=== PATIENT | female | born 1940 ===

== ENCOUNTER 2022-08-03 14:13 | Inpatient (IN) ==
[2022-08-03] MEDS ORDERED: Furosemide 40 mg/4 ml IV VIAL IV ONE ×2 (14:14→20:18)
[2022-08-03 14:54] LABS: INR 3.03 (0.89-1.11)
[2022-08-03 14:59] LABS: Hematocrit 24 % (35-47); Mean Corpuscular HGB Conc 30 g/dL (31-36); Mean Corpuscular Hemoglobin 21 pg (27-31); Mean Corpuscular Volume 69 fL (80-97); Mean Platelet Volume 8.2 fL (7.4-10.4); Platelet Count 466 10^3/uL (150-450); Red Blood Count 3.43 10^6 /uL (3.70-4.87); Red Cell Distribution Width 21 % (10-15)
[2022-08-03 15:10] LABS: High Sens Troponin Baseline 6 pg/mL (<15)
[2022-08-03 15:20] LABS: Microcytosis 3+
[2022-08-03 15:21] LABS: Anisocytosis 2+
[2022-08-03 15:22] LABS: Schistocytes 2+
[2022-08-03 15:23] LABS: ABS Basophils 0.1 10^3/ul (0-0.2); ABS Eosinophils 0.2 10^3/ul (0-0.6); ABS Monocytes 1.1 10^3/ul (0-0.8); ABS Neutrophils 4.5 10^3/ul (1.5-7.7); Eosinophil % 2.4 %; Lymphocyte % 24.7 %
[2022-08-03 15:44] LABS: ALT 10 U/L (7-52); AST 15 U/L (13-39); Albumin 3.7 g/dL (3.2-5.2); Albumin/Globulin Ratio 1.5 (1-3); Alkaline Phosphatase 182 U/L (35-149); Anion Gap 6 mmol/L (2-11); Blood Urea Nitrogen 16 mg/dL (6-24); CO2 Carbon Dioxide 27 mmol/L (22-32); Calcium 8.3 mg/dL (8.6-10.3); Chloride 92 mmol/L (101-111); Globulin 2.5 g/dL (2-4); Glucose 103 mg/dL (70-100); Magnesium 1.9 mg/dL (1.9-2.7); Potassium 3.6 mmol/L (3.5-5.0); Sodium 125 mmol/L (135-145); Total Protein 6.2 g/dL (6.4-8.9); eGFR CKD-EPI 88.9 (>60)
[2022-08-03 16:22] LABS: High Sensitivity Troponin 1 Hr 6 pg/mL (<15)
[2022-08-03] MEDS ORDERED: Pantoprazole VIAL 40 MG VIAL IV ONE (17:11)
[2022-08-03 20:51] LABS: Total Iron Binding Capacity 538 mcg/dL (250-450); Transferrin 384 mg/dL (203-362)
[2022-08-03 20:58] LABS: Urine Appearance Clear; Urine Bilirubin Negative (Negative); Urine Blood Negative (Negative); Urine Color Straw; Urine Glucose Negative (Negative); Urine Ketones Negative (Negative); Urine Nitrite Negative (Negative); Urine Protein Negative (Negative); Urine Specific Gravity 1.003 (1.002-1.030); Urine Urobilinogen Negative (Negative)
[2022-08-03 21:04] LABS: % Iron Saturation 4 % (15-55); Iron < 20 ug/dL (50-212); Unsaturated Iron Binding 518 ug/dL
[2022-08-03 21:11] LABS: Ferritin 19.5 ng/mL (11-307)
[2022-08-03 21:31] LABS: Urine Osmo 271 mOsm/kg (150-1150)
[2022-08-04] MEDS: Albuterol HFA INHALER 8 gm MDI INH PRN ×2 (02:28→19:33)
[2022-08-04 07:11] LABS: ABS Basophils 0.1 10^3/ul (0-0.2); ABS Eosinophils 0.2 10^3/ul (0-0.6); ABS Lymphocytes 1.2 10^3/ul (1.0-4.8); ABS Neutrophils 4.5 10^3/ul (1.5-7.7); Eosinophil % 2.6 %; Hematocrit 22 % (35-47); Hemoglobin 7.1 g/dL (12.0-16.0); Mean Corpuscular HGB Conc 32 g/dL (31-36); Mean Corpuscular Hemoglobin 22 pg (27-31); Mean Corpuscular Volume 70 fL (80-97); Nucleated Red Blood Cells % 0.3; Platelet Count 332 10^3/uL (150-450); Red Blood Count 3.19 10^6 /uL (3.70-4.87); Red Cell Distribution Width 23 % (10-15)
[2022-08-04 07:31] LABS: Calcium 7.7 mg/dL (8.6-10.3); Magnesium 1.7 mg/dL (1.9-2.7); Potassium 3.2 mmol/L (3.5-5.0); eGFR CKD-EPI 90.7 (>60)
[2022-08-04 07:42] LABS: Osmolality Serum 256 mOsm/kg (275-295)
[2022-08-04 07:43] LABS: TSH Ultra Thyroid Stim Horm 2.48 mcIU/mL (0.34-5.60)
[2022-08-04] MEDS: Pantoprazole VIAL 40 MG VIAL IV SCH (09:08)
[2022-08-04 12:08] LABS: Hematocrit 24 % (35-47); Hemoglobin 7.3 g/dL (12.0-16.0)
[2022-08-04] MEDS: Potassium Chlor 10 meq TAB PO SCH ×2 (12:30→20:13)
[2022-08-04] MEDS: Mometasone 220 MCG MDI INH SCH (19:43)
[2022-08-04 21:16] LABS: Potassium 3.5 mmol/L (3.5-5.0); eGFR CKD-EPI 86.9 (>60)
[2022-08-05 07:12] LABS: ABS Basophils 0.1 10^3/ul (0-0.2); ABS Eosinophils 0.2 10^3/ul (0-0.6); ABS Lymphocytes 1.5 10^3/ul (1.0-4.8); ABS Neutrophils 3.7 10^3/ul (1.5-7.7); Eosinophil % 3.6 %; Hematocrit 23 % (35-47); Hemoglobin 7.1 g/dL (12.0-16.0); Lymphocyte % 23.3 %; Mean Corpuscular HGB Conc 31 g/dL (31-36); Mean Corpuscular Hemoglobin 22 pg (27-31); Mean Corpuscular Volume 70 fL (80-97); Nucleated Red Blood Cells % 0.2; Platelet Count 342 10^3/uL (150-450); Red Blood Count 3.26 10^6 /uL (3.70-4.87); Red Cell Distribution Width 23 % (10-15); White Blood Count 6.5 10^3/uL (3.5-10.8)
[2022-08-05 07:42] LABS: Anion Gap 7 mmol/L (2-11); Blood Urea Nitrogen 15 mg/dL (6-24); CO2 Carbon Dioxide 28 mmol/L (22-32); Chloride 89 mmol/L (101-111); Glucose 99 mg/dL (70-100); Magnesium 1.9 mg/dL (1.9-2.7); Potassium 3.7 mmol/L (3.5-5.0); Sodium 124 mmol/L (135-145); eGFR CKD-EPI 86.6 (>60)
[2022-08-05] MEDS: Potassium Chlor 10 meq TAB PO SCH ×2 (08:23→20:01)
[2022-08-05 08:24] LABS: Total Iron Binding Capacity 472 mcg/dL (250-450); Transferrin 337 mg/dL (203-362)
[2022-08-05] MEDS: Pantoprazole VIAL 40 MG VIAL IV SCH (08:24)
[2022-08-05 08:27] LABS: % Iron Saturation 4 % (15-55); Iron < 20 ug/dL (50-212); Unsaturated Iron Binding 452 ug/dL
[2022-08-05 08:44] LABS: Ferritin 18.6 ng/mL (11-307)
[2022-08-05] MEDS ORDERED: Ferric Gluconate IV 125 MG in NS 0.9% 100 ml BAG 100 ML IVPB ONE (13:53)
[2022-08-05] MEDS: Mometasone 220 MCG MDI INH SCH (17:55)
[2022-08-05] MEDS: Albuterol HFA INHALER 8 gm MDI INH PRN (18:01)
[2022-08-06] MEDS: Pantoprazole VIAL 40 MG VIAL IV SCH (09:10)
[2022-08-06] MEDS: Potassium Chlor 10 meq TAB PO SCH ×2 (09:10→23:25)
[2022-08-06] MEDS: Albuterol HFA INHALER 8 gm MDI INH PRN ×2 (14:32→23:16)
[2022-08-07 06:25] LABS: ABS Basophils 0.1 10^3/ul (0-0.2); ABS Eosinophils 0.2 10^3/ul (0-0.6); ABS Lymphocytes 1.3 10^3/ul (1.0-4.8); ABS Monocytes 0.9 10^3/ul (0-0.8); ABS Neutrophils 4.2 10^3/ul (1.5-7.7); Eosinophil % 3.1 %; Hematocrit 22 % (35-47); Hemoglobin 6.9 g/dL (12.0-16.0); Lymphocyte % 19.1 %; Mean Corpuscular HGB Conc 31 g/dL (31-36); Mean Corpuscular Hemoglobin 22 pg (27-31); Mean Corpuscular Volume 69 fL (80-97); Mean Platelet Volume 8.1 fL (7.4-10.4); Nucleated Red Blood Cells % 0.1; Platelet Count 343 10^3/uL (150-450); Red Blood Count 3.17 10^6 /uL (3.70-4.87); Red Cell Distribution Width 23 % (10-15); White Blood Count 6.7 10^3/uL (3.5-10.8)
[2022-08-07 06:50] LABS: Calcium 8.1 mg/dL (8.6-10.3); Magnesium 2.1 mg/dL (1.9-2.7); eGFR CKD-EPI 87.9 (>60)
[2022-08-07] MEDS: Potassium Chlor 10 meq TAB PO SCH (10:42)
[2022-08-07] MEDS: Pantoprazole VIAL 40 MG VIAL IV SCH (10:43)
[2022-08-07] MEDS: Mometasone 220 MCG MDI INH SCH ×2 (13:23→19:53)
[2022-08-07] MEDS: Albuterol HFA INHALER 8 gm MDI INH PRN ×2 (13:23→19:56)
[2022-08-07] MEDS ORDERED: Furosemide 20 mg/2 ml IV VIAL IV SLOW PU ONE (16:42)
[2022-08-07 20:44] LABS: Hematocrit 27 % (35-47); Hemoglobin 8.1 g/dL (12.0-16.0)
[2022-08-08 08:25] LABS: ABS Basophils 0.1 10^3/ul (0-0.2); ABS Eosinophils 0.2 10^3/ul (0-0.6); ABS Monocytes 1.2 10^3/ul (0-0.8); ABS Neutrophils 4.7 10^3/ul (1.5-7.7); Eosinophil % 2.1 %; Hematocrit 27 % (35-47); Hemoglobin 8.5 g/dL (12.0-16.0); Lymphocyte % 24.8 %; Mean Corpuscular HGB Conc 31 g/dL (31-36); Mean Corpuscular Hemoglobin 23 pg (27-31); Mean Corpuscular Volume 72 fL (80-97); Mean Platelet Volume 8.4 fL (7.4-10.4); Nucleated Red Blood Cells % 0.1; Platelet Count 387 10^3/uL (150-450); Red Blood Count 3.77 10^6 /uL (3.70-4.87); Red Cell Distribution Width 25 % (10-15); White Blood Count 8.2 10^3/uL (3.5-10.8)
[2022-08-08 08:44] LABS: Albumin 3.5 g/dL (3.2-5.2); Albumin/Globulin Ratio 1.5 (1-3); Calcium 8.3 mg/dL (8.6-10.3); Globulin 2.3 g/dL (2-4); Magnesium 2.2 mg/dL (1.9-2.7); Potassium 4.9 mmol/L (3.5-5.0); Total Bilirubin 0.8 mg/dL (0.2-1.0); Total Protein 5.8 g/dL (6.4-8.9); eGFR CKD-EPI 86.6 (>60)
[2022-08-08] MEDS: Pantoprazole VIAL 40 MG VIAL IV SCH (09:57)
[2022-08-08] MEDS: Albuterol HFA INHALER 8 gm MDI INH PRN (10:19)
[2022-08-08] MEDS ORDERED: CALCIUM GLUCONATE 1GM/50ML NS 1 GM/50 ML BAG IV ONE (11:29)
[2022-08-08] MEDS ORDERED: Furosemide 40 mg/4 ml IV VIAL IV SLOW PU ONE (14:44)
[2022-08-08] MEDS: Mometasone 220 MCG MDI INH SCH (19:46)
[2022-08-09 08:20] LABS: Tissue Transglutaminase IgA Ab 1.9 U/mL; Tissue Transglutaminase IgG Ab <1.2 U/mL
[2022-08-09] MEDS: Pantoprazole VIAL 40 MG VIAL IV SCH (08:37)
[2022-08-09 08:54] LABS: ABS Basophils 0.1 10^3/ul (0-0.2); ABS Eosinophils 0.1 10^3/ul (0-0.6); ABS Monocytes 0.7 10^3/ul (0-0.8); ABS Neutrophils 3.6 10^3/ul (1.5-7.7); Eosinophil % 2.3 %; Hematocrit 26 % (35-47); Lymphocyte % 18.8 %; Mean Corpuscular HGB Conc 31 g/dL (31-36); Mean Corpuscular Hemoglobin 22 pg (27-31); Mean Corpuscular Volume 73 fL (80-97); Mean Platelet Volume 7.9 fL (7.4-10.4); Platelet Count 348 10^3/uL (150-450); Red Blood Count 3.58 10^6 /uL (3.70-4.87); Red Cell Distribution Width 26 % (10-15); White Blood Count 5.5 10^3/uL (3.5-10.8)
[2022-08-09 09:33] LABS: Calcium 8.3 mg/dL (8.6-10.3); Magnesium 2.2 mg/dL (1.9-2.7); Potassium 4.1 mmol/L (3.5-5.0); eGFR CKD-EPI 87.2 (>60)
[2022-08-09 10:04] LABS: Anisocytosis 1+; Target Cells 1+
[2022-08-09 10:06] LABS: Acanthocytes 1+
[2022-08-09] MEDS: Mometasone 220 MCG MDI INH SCH (19:21)
[2022-08-10 07:20] LABS: Calcium 8.2 mg/dL (8.6-10.3); Magnesium 2.1 mg/dL (1.9-2.7); Potassium 3.9 mmol/L (3.5-5.0); eGFR CKD-EPI 86.6 (>60)
[2022-08-10 07:51] LABS: ABS Basophils 0.1 10^3/ul (0-0.2); ABS Eosinophils 0.2 10^3/ul (0-0.6); ABS Lymphocytes 1.2 10^3/ul (1.0-4.8); ABS Monocytes 0.8 10^3/ul (0-0.8); ABS Neutrophils 3.4 10^3/ul (1.5-7.7); Eosinophil % 2.8 %; Hematocrit 26 % (35-47); Hemoglobin 8.2 g/dL (12.0-16.0); Lymphocyte % 21.8 %; Mean Corpuscular HGB Conc 32 g/dL (31-36); Mean Corpuscular Hemoglobin 23 pg (27-31); Mean Corpuscular Volume 73 fL (80-97); Mean Platelet Volume 7.9 fL (7.4-10.4); Nucleated Red Blood Cells % 0.1; Platelet Count 340 10^3/uL (150-450); Red Blood Count 3.54 10^6 /uL (3.70-4.87); Red Cell Distribution Width 26 % (10-15); White Blood Count 5.6 10^3/uL (3.5-10.8)
[2022-08-10 08:54] LABS: Gliadin IgA Deamidated <10.0 U; Gliadin IgG Deamidated <10.0 U
[2022-08-10] MEDS: Pantoprazole VIAL 40 MG VIAL IV SCH (09:57)
[2022-08-10] MEDS ORDERED: Midazolam 5 mg/5 ml VIAL 1 mg/ml 5 ml VIAL (5 mg) ONE (14:32)
[2022-08-10] MEDS ORDERED: fentaNYL 100 mcg/2 ml 50 MCG/ML VIAL ONE (14:32)
[2022-08-10] MEDS ORDERED: Furosemide 40 mg/4 ml IV VIAL IV SLOW PU SCH (15:00)
[2022-08-10] MEDS: Furosemide 40 mg/4 ml IV VIAL IV SLOW PU SCH (17:59)
[2022-08-10] MEDS: Mometasone 220 MCG MDI INH SCH (19:36)
[2022-08-10 20:29] LABS: Celiac gene pairs present? Yes
[2022-08-10 20:30] LABS: Immunoglobulin A 238 mg/dL (61 - 356)
[2022-08-11 06:46] LABS: Hematocrit 27 % (35-47); Hemoglobin 8.5 g/dL (12.0-16.0); Mean Corpuscular HGB Conc 31 g/dL (31-36); Mean Corpuscular Hemoglobin 23 pg (27-31); Mean Corpuscular Volume 74 fL (80-97); Platelet Count 316 10^3/uL (150-450); Red Blood Count 3.69 10^6 /uL (3.70-4.87); Red Cell Distribution Width 26 % (10-15); White Blood Count 6.6 10^3/uL (3.5-10.8)
[2022-08-11 07:06] LABS: Albumin 3.2 g/dL (3.2-5.2); Albumin/Globulin Ratio 1.4 (1-3); Calcium 8.2 mg/dL (8.6-10.3); Globulin 2.3 g/dL (2-4); Magnesium 2.1 mg/dL (1.9-2.7); Potassium 3.8 mmol/L (3.5-5.0); Total Bilirubin 0.6 mg/dL (0.2-1.0); Total Protein 5.5 g/dL (6.4-8.9); eGFR CKD-EPI 88.2 (>60)
[2022-08-11 08:25] LABS: Anisocytosis 2+
[2022-08-11 08:26] LABS: Acanthocytes 1+
[2022-08-11 08:28] LABS: ABS Basophils 0.1 10^3/ul (0-0.2); ABS Eosinophils 0.1 10^3/ul (0-0.6); ABS Lymphocytes 1.1 10^3/ul (1.0-4.8); ABS Monocytes 0.9 10^3/ul (0-0.8); ABS Neutrophils 4.4 10^3/ul (1.5-7.7); Eosinophil % 1.6 %; Lymphocyte % 17.2 %
[2022-08-11] MEDS: Pantoprazole VIAL 40 MG VIAL IV SCH (08:44)
[2022-08-11] MEDS: Furosemide 40 mg/4 ml IV VIAL IV SLOW PU SCH (08:45)
[2022-08-11] MEDS: Mometasone 220 MCG MDI INH SCH (20:40)
[2022-08-11] MEDS ORDERED: Potassium Chlor 20 meq TAB.ER PO ONE (21:28)
[2022-08-12 06:06] LABS: Calcium 8.1 mg/dL (8.6-10.3); Magnesium 2.1 mg/dL (1.9-2.7); Potassium 4.3 mmol/L (3.5-5.0); eGFR CKD-EPI 88.5 (>60)
[2022-08-12 06:08] LABS: Hematocrit 26 % (35-47); Hemoglobin 8.1 g/dL (12.0-16.0); Mean Corpuscular HGB Conc 31 g/dL (31-36); Mean Corpuscular Hemoglobin 23 pg (27-31); Mean Corpuscular Volume 73 fL (80-97); Mean Platelet Volume 7.8 fL (7.4-10.4); Platelet Count 266 10^3/uL (150-450); Red Blood Count 3.62 10^6 /uL (3.70-4.87); Red Cell Distribution Width 26 % (10-15); White Blood Count 4.8 10^3/uL (3.5-10.8)
[2022-08-12 07:47] LABS: ABS Eosinophils 0.1 10^3/ul (0-0.6); ABS Lymphocytes 1.2 10^3/ul (1.0-4.8); ABS Monocytes 0.7 10^3/ul (0-0.8); ABS Neutrophils 2.7 10^3/ul (1.5-7.7); Eosinophil % 2.8 %; Lymphocyte % 25.2 %; Nucleated Red Blood Cells % 0.1
[2022-08-12] MEDS: Pantoprazole VIAL 40 MG VIAL IV SCH (08:38)
[2022-08-12] MEDS: Furosemide 40 mg/4 ml IV VIAL IV SLOW PU SCH (08:38)
[2022-08-12] MEDS: Mometasone 220 MCG MDI INH SCH (19:30)
[2022-08-13] MEDS ORDERED: Cosyntropin 0.001 MG in Sodium Chloride 0.9% 0.5 ML IV ONE (06:00)
[2022-08-13 06:23] LABS: Hematocrit 27 % (35-47); Hemoglobin 8.1 g/dL (12.0-16.0); Mean Corpuscular HGB Conc 30 g/dL (31-36); Mean Corpuscular Hemoglobin 22 pg (27-31); Mean Corpuscular Volume 73 fL (80-97); Mean Platelet Volume 8.1 fL (7.4-10.4); Platelet Count 271 10^3/uL (150-450); Red Blood Count 3.64 10^6 /uL (3.70-4.87); Red Cell Distribution Width 27 % (10-15); White Blood Count 4.6 10^3/uL (3.5-10.8)
[2022-08-13 06:52] LABS: Calcium 8.2 mg/dL (8.6-10.3); Potassium 3.9 mmol/L (3.5-5.0); eGFR CKD-EPI 89.2 (>60)
[2022-08-13 06:59] LABS: ABS Basophils 0.1 10^3/ul (0-0.2); ABS Eosinophils 0.2 10^3/ul (0-0.6); ABS Lymphocytes 1.3 10^3/ul (1.0-4.8); ABS Monocytes 0.6 10^3/ul (0-0.8); ABS Neutrophils 2.4 10^3/ul (1.5-7.7); Eosinophil % 4.7 %; Lymphocyte % 28.2 %
[2022-08-13] MEDS: Pantoprazole VIAL 40 MG VIAL IV SCH (08:42)
[2022-08-13] MEDS: Furosemide 40 mg/4 ml IV VIAL IV SLOW PU SCH (09:35)
[2022-08-13] MEDS ORDERED: Potassium Chlor 20 meq TAB.ER PO ONE (10:45)
[2022-08-13] MEDS: Mometasone 220 MCG MDI INH SCH ×2 (19:53→20:27)
[2022-08-14 07:02] LABS: ABS Basophils 0.1 10^3/ul (0-0.2); ABS Eosinophils 0.2 10^3/ul (0-0.6); ABS Lymphocytes 1.5 10^3/ul (1.0-4.8); ABS Monocytes 0.7 10^3/ul (0-0.8); ABS Neutrophils 2.1 10^3/ul (1.5-7.7); Eosinophil % 3.7 %; Hematocrit 28 % (35-47); Hemoglobin 8.4 g/dL (12.0-16.0); Lymphocyte % 32.9 %; Mean Corpuscular HGB Conc 31 g/dL (31-36); Mean Corpuscular Hemoglobin 23 pg (27-31); Mean Corpuscular Volume 74 fL (80-97); Mean Platelet Volume 7.9 fL (7.4-10.4); Nucleated Red Blood Cells % 0.1; Platelet Count 275 10^3/uL (150-450); Red Blood Count 3.71 10^6 /uL (3.70-4.87); Red Cell Distribution Width 27 % (10-15); White Blood Count 4.5 10^3/uL (3.5-10.8)
[2022-08-14 07:14] LABS: Calcium 8.2 mg/dL (8.6-10.3); Magnesium 2.1 mg/dL (1.9-2.7); Potassium 4.5 mmol/L (3.5-5.0); eGFR CKD-EPI 88.5 (>60)
[2022-08-14] MEDS ORDERED: Cosyntropin 0.25 MG VIAL IV ONE (07:30)
[2022-08-14] MEDS: Pantoprazole VIAL 40 MG VIAL IV SCH (09:00)
[2022-08-14] MEDS: Furosemide 40 mg/4 ml IV VIAL IV SLOW PU SCH (10:16)
[2022-08-14] MEDS ORDERED: Furosemide 40 mg/4 ml IV VIAL IV SLOW PU ONE ×2 (18:00)
[2022-08-14] MEDS: Mometasone 220 MCG MDI INH SCH (19:59)
[2022-08-14] MEDS ORDERED: Iron Sucrose 200 MG in NS 0.9% 100 ml BAG 100 ML IVPB ONE (20:00)
[2022-08-14] MEDS: Heparin 5000 UNITS/ML 1 mL VIAL SUBCUT SCH (22:46)
[2022-08-15] MEDS: Heparin 5000 UNITS/ML 1 mL VIAL SUBCUT SCH ×3 (05:53→23:07)
[2022-08-15 06:22] LABS: ABS Basophils 0.1 10^3/ul (0-0.2); ABS Eosinophils 0.2 10^3/ul (0-0.6); ABS Lymphocytes 1.4 10^3/ul (1.0-4.8); ABS Monocytes 0.8 10^3/ul (0-0.8); ABS Neutrophils 2.4 10^3/ul (1.5-7.7); Eosinophil % 3.3 %; Hematocrit 27 % (35-47); Hemoglobin 8.1 g/dL (12.0-16.0); Lymphocyte % 28.2 %; Mean Corpuscular HGB Conc 31 g/dL (31-36); Mean Corpuscular Hemoglobin 23 pg (27-31); Mean Corpuscular Volume 74 fL (80-97); Mean Platelet Volume 8.4 fL (7.4-10.4); Nucleated Red Blood Cells % 0.1; Platelet Count 271 10^3/uL (150-450); Red Cell Distribution Width 27 % (10-15); White Blood Count 4.8 10^3/uL (3.5-10.8)
[2022-08-15 06:33] LABS: Calcium 8.1 mg/dL (8.6-10.3); Potassium 3.5 mmol/L (3.5-5.0); eGFR CKD-EPI 71.4 (>60)
[2022-08-15] MEDS: Pantoprazole VIAL 40 MG VIAL IV SCH (07:29)
[2022-08-15] MEDS ORDERED: Potassium Chlor 20 meq TAB.ER PO ONE (08:11)
[2022-08-15] MEDS ORDERED: Furosemide 40 mg/4 ml IV VIAL IV SLOW PU ONE (08:57)
[2022-08-15] MEDS: Mometasone 220 MCG MDI INH SCH (19:42)
[2022-08-15] MEDS ORDERED: Iron Sucrose 200 MG in NS 0.9% 100 ml BAG 100 ML IVPB ONE (20:00)
[2022-08-16 06:04] LABS: Calcium 8.5 mg/dL (8.6-10.3); Potassium 3.7 mmol/L (3.5-5.0); eGFR CKD-EPI 86.6 (>60)
[2022-08-16] MEDS: Heparin 5000 UNITS/ML 1 mL VIAL SUBCUT SCH ×3 (06:13→22:01)
[2022-08-16 06:59] LABS: ABS Basophils 0.1 10^3/ul (0-0.2); ABS Eosinophils 0.2 10^3/ul (0-0.6); ABS Lymphocytes 1.5 10^3/ul (1.0-4.8); Eosinophil % 3.5 %; Hematocrit 28 % (35-47); Hemoglobin 8.6 g/dL (12.0-16.0); Lymphocyte % 21.4 %; Mean Corpuscular HGB Conc 31 g/dL (31-36); Mean Corpuscular Hemoglobin 23 pg (27-31); Mean Corpuscular Volume 73 fL (80-97); Platelet Count 281 10^3/uL (150-450); Red Blood Count 3.78 10^6 /uL (3.70-4.87); Red Cell Distribution Width 26 % (10-15); White Blood Count 6.8 10^3/uL (3.5-10.8)
[2022-08-16] MEDS ORDERED: Furosemide 20 mg/2 ml IV VIAL IV SLOW PU ONE (08:26)
[2022-08-16] MEDS: Pantoprazole VIAL 40 MG VIAL IV SCH (09:20)
[2022-08-16] MEDS ORDERED: Furosemide 20 mg/2 ml IV VIAL ONE (09:23)
[2022-08-16 16:17] LABS: Rapid COVID-19 Molecular Undetected (Undetected)
[2022-08-16] MEDS: Mometasone 220 MCG MDI INH SCH (22:20)
[2022-08-17] MEDS: Heparin 5000 UNITS/ML 1 mL VIAL SUBCUT SCH (06:05)
[2022-08-17 06:24] LABS: Calcium 8.6 mg/dL (8.6-10.3); Potassium 3.5 mmol/L (3.5-5.0); eGFR CKD-EPI 89.6 (>60)
[2022-08-17 06:35] LABS: ABS Basophils 0.2 10^3/ul (0-0.2); ABS Eosinophils 0.2 10^3/ul (0-0.6); ABS Lymphocytes 1.3 10^3/ul (1.0-4.8); ABS Monocytes 0.9 10^3/ul (0-0.8); Eosinophil % 3.2 %; Hematocrit 27 % (35-47); Hemoglobin 8.5 g/dL (12.0-16.0); Lymphocyte % 19.8 %; Mean Corpuscular HGB Conc 32 g/dL (31-36); Mean Corpuscular Hemoglobin 23 pg (27-31); Mean Corpuscular Volume 73 fL (80-97); Mean Platelet Volume 9.1 fL (7.4-10.4); Nucleated Red Blood Cells % 0.1; Platelet Count 302 10^3/uL (150-450); Red Blood Count 3.72 10^6 /uL (3.70-4.87); Red Cell Distribution Width 26 % (10-15); White Blood Count 6.5 10^3/uL (3.5-10.8)
[2022-08-17] MEDS: Pantoprazole VIAL 40 MG VIAL IV SCH (08:37)
[2022-08-17 11:06] VITALS: BP 120/81
== END 2022-08-17 11:05 | DRG 377 ==
LOC: ED 14:13 → EDHOLD 18:22 → SUATTDRO 18:22 → MEDTELE 08-04 00:51 → MED 08-12 16:46 → SSU 08-14 18:07
PROVIDERS: ADMIT Hospitalist; ATTEND Internal Medicine